=== PATIENT | male | born 1950 | race Caucasian/White ===

== ENCOUNTER → 2017-05-27 | Outpatient (CLI) | payer OTHER ==
[~2017-05-27] VITALS: Ht 185.4 cm; Wt 94.3 kg
[~2017-05-27] MED LIST: ASPIRIN325 PO; DIAZEPAM 10 MG10 M1 PO; FISH OIL 1,001000 M2 PO; LISINOPRIL10 MG PO; METFORMIN HCL500 MG PO; MULTIVITAMINS PO; NEOSPORIN ANT14.2 GM TOP; NORCO 7.5-3251 EACH PO; POTASSIUM GLUCO99 M2 PO; PRINIVIL40 MG PO; VITAMIN D1000 UNI1 PO; VITAMIN E400 UNIT PO; ZOCOR 10 MG TAB10 MG PO; ZOCOR20 MG PO
--- NOTE | ~2017-05-27 | S ---
[facility] [place] [address] SURGICAL PATH RPT PROCEDURE Name: TANNER YATES Room #: REG [facility]#: [id number] Admission: 05/27/17 Date of : 54 Discharge: Report #: [id number] Path Case #: [id number] PATHOLOGY REPORT COLLECTION DATE: 05/27/2017 RECEIVED DATE: 05/27/2017 SUBMITTING PHYS: Dr. Luis Rg OTHER PHYS: Dr. Abner Alejandre SPECIMEN(S) RECEIVED: A.Cecal polyp B.Hepatic flexure polyp C.Colon polyp at 70 cm D.Colon polyp at 50 cm E.Colon polyp at 40 cm * * * * * * * * * * * * FINAL DIAGNOSIS: A. "Cecal polyp", biopsy: - Tubular adenoma; no high-grade dysplasia. B. "Hepatic flexure polyp", biopsy: - Tubular adenoma; no high-grade dysplasia. C. "Colon polyp at 70 cm", biopsy: - Tubular adenoma; no high-grade dysplasia. D. "Colon polyp at 50 cm", biopsy: - Tubular adenoma; no high-grade dysplasia. E. "Colon polyp at 40 cm", biopsy: - Tubular adenoma; no high-grade dysplasia. (CLW:enrique; 05/28/2017) PATHOLOGIST: Aaliyah Kaplan M.D. REPORT ELECTRONICALLY SIGNED BY: Aaliyah Kaplan M.D. DATE/TIME: 05/28/2017 13:39 * * * * * * * * * * * * GROSS PATHOLOGY: A. Received in formalin labeled "Tanner Vizcainosantana, BX of cecum polyp," is a segment of paez soft tissue measuring 0.3 cm in maximum dimension. The specimen is submitted entirely in cassette A1. B. Received in formalin labeled "Tanner Milan, BX of polyp at hepatic flexure," are 2 segments of paez soft tissue measuring 0.8 x 0.2 x 0.2 cm in aggregate dimensions and measuring 0.4 cm each in maximum dimension. The specimen is submitted entirely in cassette B1. C. Received in formalin labeled "Tanner Milan, polyp at 70 cm," are 2 segments of paez soft tissue measuring 1.1 x 0.4 x 0.3 cm in aggregate dimensions and ranging from 0.4 to 0.7 cm in maximum [address] [address] SURGICAL PATH RPT PROCEDURE Name: TANNER YATES LISA Room #: REG [facility].#: [id number] Admission: 05/27/17 Date of : 54 Discharge: Report #: [id number] Path Case #: [id number] dimension. The specimen is submitted entirely in cassette C1. D. Received in formalin labeled "Tanner Milan, BX of polyp at 50 cm," is a segment of paez soft tissue measuring 0.4 cm in maximum dimension. The specimen is submitted entirely in cassette D1. E. Received in formalin labeled "Tanner Yates, BX of polyp at 40 cm," are 2 segments of paez soft tissue measuring 0.6 x 0.2 x 0.2 cm in aggregate dimensions and ranging from 0.2 to 0.4 cm in maximum dimension. The specimen is submitted entirely in cassette E1. (TSD; 05/27/2017) CLINICAL HISTORY: Pre-OP DX: Hx of polyps Post-OP DX: Colon polyps INITIAL CPT CODE(S): A; 44191 B; 61231 C; 77530 D; 51801 E; 17997 Professional services performed by [facility] at [facility] [address], [place] [address] Technical services performed by [facility] at [address] [place] [address], [address], [place] [address]. [facility] [address] [place] [address] PHONE: [phone] DIRECTOR: Spike Bucio M.D. * * * END OF REPORT * * *
--- NOTE | ~2017-05-27 | P ---
[facility] [place] [address] PROCEDURE REPORT Name: TANNER BOYD Room #: REG [facility]#: [id number] Admission: 05/27/17 Attend Phys: Luis Rg MD Discharge: Date of : 54 Report #: [id number] THIS REPORT FOR: //name// CC: Luis Alejandre BRIEF HISTORY: The patient is a 67-year-old male who has a history of colon polyps with previous flat polyps in the proximal colon. They were hyperplastic, but due to the proximal location he was advised to return for followup colonoscopy and surveillance. PREOPERATIVE DIAGNOSIS: High risk screening colonoscopy due to history of colon polyps. POSTOPERATIVE DIAGNOSES: 1. Colon polyps. 2. Internal hemorrhoids. MEDICATIONS: Deep sedation with propofol per anesthesia. SPECIMEN: 1. Polyp from cecum. 2. Polyp from hepatic flexure. 3. Polyp x 2 at 70 cm. 4. Polyp at 50 cm. 5. Polyp at 40 cm. ESTIMATED BLOOD LOSS: 3 mL. PROCEDURE: Colonoscopy to cecum and terminal ileum with snare polypectomy and biopsy. FINDINGS: Prior to propofol sedation, procedure of colonoscopy discussed with the patient as well as potential risks and its complications. He indicates he understands and desires to proceed. DESCRIPTION OF PROCEDURE: With the patient in left lateral decubitus position, digital examination was completed which revealed no abnormalities. Subsequently, the [employer] video colonoscope was introduced in the rectum and advanced under direct vision to the cecum. Done with minimal difficulty. The cecum was identified by the ileocecal valve and the appendiceal orifice. I was able to visualize the appendiceal orifice and the ileocecal valve. The distal segment of terminal ileum was inspected and noted to be unremarkable. At that point, the scope was slowly withdrawn and careful circumferential views obtained including retroflexing the scope in the ascending colon. Upon slow withdrawal of the scope, the prep was good. The mucosa was within normal limits, normal [facility] [address] [place] [address] PROCEDURE REPORT Name: TANNER BOYD LISA Room #: REG [facility].#: [id number] Admission: 05/27/17 Attend Phys: Luis Rg MD Discharge: Date of : 54 Report #: [id number] vascular pattern, normal light reflex. As we withdrew the scope, he was noted to have a diminutive polyp in the cecum, which was removed with biopsy forceps. Also, another diminutive polyp seen and removed by biopsy from the hepatic flexure. As we withdrew the scope through the colon, in the mid transverse colon, 2 Tattoo [place] were identified. These were the site of a previous polypectomy. The area was carefully examined and no residual polyp tissue was seen. Scope was further withdrawn and no additional abnormality was noted until about 70 cm at which point 2 polyps were seen. One was a flat polyp about 5 mm in greatest dimension, removed by cold snare polypectomy. The other was a diminutive polyp removed by biopsy. Scope was further withdrawn and a diminutive polyp was seen and removed by biopsy at 50 cm and at 40 cm, 2 diminutive polyps were seen and removed by biopsy. Scope was further withdrawn and no additional polyps were seen. The scope was withdrawn in the rectum. Upon retroflexion, small hemorrhoids were seen. Scope was withdrawn. The patient tolerated the procedure well. CONDITION OF THE PATIENT UPON DISCHARGE: Following procedure, the patient drowsy, aroused and conversant and will be discharged home when fully ambulatory. INSTRUCTIONS TO THE PATIENT AND FAMILY AT THE TIME OF DISCHARGE: The patient with finding of multiple polyps as described. We will follow up on the path of the polyps. However, again, I suggest followup colon exam in 3 years. Last colonoscopy was approximately 2 years ago. Withdrawal time from the cecum was 21 minutes 43 seconds. <ELECTRONICALLY SIGNED> By: Luis Rg MD 06/08/17 1617 [id number] [id number] Luis Rg MD /nt
== END | disposition home or self-care (01) ==
LOC: GI 08:15
DX: Z09 Encounter for follow-up examination after completed treatment for conditions other than malignant neoplasm (principal); D12.0 Benign neoplasm of cecum; D12.3 Benign neoplasm of transverse colon; D12.5 Benign neoplasm of sigmoid colon; D12.4 Benign neoplasm of descending colon; K64.8 Other hemorrhoids; I10 Essential (primary) hypertension; E11.9 Type 2 diabetes mellitus without complications; E78.00 Pure hypercholesterolemia, unspecified; Z86.010 Personal history of colon polyps; Z88.0 Allergy status to penicillin; Z79.82 Long term (current) use of aspirin; Z79.891 Long term (current) use of opiate analgesic; Z79.899 Other long term (current) drug therapy; Z87.891 Personal history of nicotine dependence; Z95.5 Presence of coronary angioplasty implant and graft; Z98.890 Other specified postprocedural states; Z86.19 Personal history of other infectious and parasitic diseases
CPT/HCPCS: 62110

== ENCOUNTER 2018-11-22 20:13 | Emergency (ER) | payer OTHER ==
[~2018-11-22] VITALS: Ht 182.9 cm; Wt 81.7 kg
[2018-11-22 21:10] VITALS: BP 156/92
== END 2018-11-22 21:10 | disposition home or self-care (01) ==
LOC: ER 20:13
DX: L72.3 Sebaceous cyst (principal); I10 Essential (primary) hypertension; E11.9 Type 2 diabetes mellitus without complications; G89.29 Other chronic pain; M25.559 Pain in unspecified hip; E78.00 Pure hypercholesterolemia, unspecified; F17.210 Nicotine dependence, cigarettes, uncomplicated; Z90.89 Acquired absence of other organs; Z95.2 Presence of prosthetic heart valve; Z88.0 Allergy status to penicillin